=== PATIENT | female | born 1970 | race Caucasian/White ===

== ENCOUNTER 2017-02-27 13:16 | Outpatient (CLI) | payer OTHER ==
[~2017-02-27 13:16] MED LIST: LOPRESSOR25 MG; TAMOXIFEN CITRA20 MG PO; TAPAZOLE5 M1; ULTRACET PO; VITAMIN D350000 UNIT PO; WELLBUTRIN SR150 MG PO; WELLBUTRIN XL150 M1
== END 2017-02-27 13:24 | disposition home or self-care (01) ==
LOC: SONOGRAMA 13:16
DX: C50.412 Malignant neoplasm of upper-outer quadrant of left female breast (principal); N63.32 Unspecified lump in axillary tail of the left breast

== ENCOUNTER 2017-09-22 09:17 | Outpatient (CLI) | payer OTHER | END 2017-09-22 09:25 | disposition home or self-care (01) | LOC: RAD 09:17 | DX: I10 Essential (primary) hypertension (principal); C50.912 Malignant neoplasm of unspecified site of left female breast ==

== ENCOUNTER 2017-09-25 05:30 | Day surgery (SDC) | payer OTHER | END 2017-09-25 10:55 | disposition home or self-care (01) | LOC: CIR.AMB 05:30 | DX: C50.912 Malignant neoplasm of unspecified site of left female breast (principal); Z90.13 Acquired absence of bilateral breasts and nipples ==

== ENCOUNTER 2019-03-09 08:38 | Outpatient (CLI) | payer OTHER | END 2019-03-09 08:50 | disposition home or self-care (01) | LOC: RX STUDY 08:38 | DX: R13.19 Other dysphagia (principal) ==

== ENCOUNTER 2021-01-27 10:12 | Emergency (ER) | payer OTHER ==
[~2021-01-27] VITALS: Ht 157.5 cm; Wt 67.1 kg
[2021-01-27] MEDS ORDERED: TOPAMAX50 MG PO (10:25)
[2021-01-27] MEDS ORDERED: SIMVASTATIN80 MG (10:25)
[2021-01-27] MEDS ORDERED: EVISTA60 MG PO (10:25)
[2021-01-27] MEDS ORDERED: ZITHROMAX200 MG PO (13:02)
== END 2021-01-27 13:12 | disposition home or self-care (01) ==
LOC: ER 10:12
DX: A49.3 Mycoplasma infection, unspecified site (principal); Z20.822 Contact with and (suspected) exposure to COVID-19

== ENCOUNTER 2022-03-27 13:05 | Emergency (ER) | payer OTHER ==
[~2022-03-27] VITALS: Ht 157.5 cm; Wt 69.4 kg
[~2022-03-27 13:05] MED LIST changes: +EVISTA60 MG PO; +SIMVASTATIN80 MG; +TOPAMAX50 MG PO; +ZITHROMAX200 MG PO
[2022-03-27] MEDS ORDERED: SYNTHROID100 MCG (13:57)
[2022-03-27] MEDS ORDERED: CYMBALTA20 MG (13:58)
[2022-03-27] MEDS ORDERED: TOPAMAX50 MG (13:59)
[2022-03-27] MEDS ORDERED: MIRALAX510 GM PO (17:33)
== END 2022-03-27 17:45 | disposition home or self-care (01) ==
LOC: ER 13:05
DX: K59.00 Constipation, unspecified (principal); K57.30 Diverticulosis of large intestine without perforation or abscess without bleeding; Z88.8 Allergy status to other drugs, medicaments and biological substances